=== PATIENT | female | born 1995 | race Caucasian/White ===

== ENCOUNTER 2020-02-28 09:34 | Emergency (ER) | payer SELFPAY ==
[2020-02-28 10:45] VITALS: BP 136/77; PULSE 80; RESP 18; TEMP 35.9; O2SAT 95; BMI 40.7
--- NOTE | 2020-02-28 10:45 | ED_ITS ---
HPI - URI/Sore Throat General Chief Complaint: Upper Respiratory Symptoms Stated Complaint: cough nausea Time Seen by Provider: 02/28/20 10:45 Source: patient Mode of arrival: ambulatory Limitations: no limitations History of Present Illness HPI Narrative: HAS HAD 3 NEGATIVE COVID TESTS, C/O RUNNY NOSE BUT NO FEVERS - NEEDS CLEARANCE TO RETURN MD elicited complaint: nasal congestion Onset (ago): week(s) (3) Consistency: intermittent Severity: mild Able to tolerate fluids by mouth: Yes Exacerbating factors: supine positioning Relieving factors: nothing Associated symptoms: denies other symptoms Treatments prior to arrival: none Related Data Previous Rx's Medication Instructions Recorded cetirizine 10 mg PO DAILY PRN #30 cap 02/28/20 Allergies Allergy/AdvReac Type Severity Reaction Status Date / Time No Known Allergies Allergy Verified 02/28/20 10:42 [No Known Allergies*] Review of Systems Review of Systems: Constitutional : No Weight loss, No Fever, No Chills, No Fatigue, No Malaise ENT/Mouth : No sore throat, pos Rhinorrhea Eyes: No Eye Pain, No Swelling, No Redness Cardiovascular : No Chest Pain, No SOB, No Dyspnea on Exertion, No Orthopnea, No Edema, No Palpitations Respiratory : pos for 3 weeks in AM Cough, No Sputum, No Wheezing Gastrointestinal : No Nausea, No Vomiting, No Diarrhea, No Constipation, No abdominal Pain, No Hematochezia, No Melena All other systems reviewed and are negative [facility] Past Medical History Attestation statement: The following information was validated with the patient. Medical History No known health problems Social History Social History Alcohol intake: current Smoking Status: Current every day smoker Use of substances other than those prescribed or required for medical reasons: No Advance Directives: No Advance Directives Information Provided: Yes Physical Exam Vital Signs: Vital Signs: Last Vital Signs Temp 96.6 F L 02/28/20 10:45 Pulse 80 02/28/20 10:45 Resp 18 02/28/20 10:45 BP 136/77 02/28/20 10:45 Pulse Ox 95 02/28/20 10:45 Body Mass Index 40.7 Appearance: Alert. Oriented X3. No acute distress. Eyes: Pupils equal, round and reactive to light. ENT: Pharynx normal. Neck: Normal inspection. Neck supple. CVS: Normal heart rate and rhythm. Pulses normal. Respiratory: No respiratory distress. Breath sounds normal. Abdomen: Soft and nontender. Skin: Skin warm and dry. Normal skin color. Normal skin turgor. Extremities: No lower extremity edema. No calf ttp Neuro: Oriented X 3. No motor deficit. No sensory deficit. MDM - URI/Sore Throat MDM Narrative Medical decision making narrative: 24 yo female with c/o post nasal drip here with cough and runny nose x 3 weeks has had 3 negative COVID tests in that time, here for work note, likely allergies will start on zyrtect Discharge Plan Discharge Clinical Impression: Allergic rhinitis Qualifiers: Allergic rhinitis trigger: unspecified Allergic rhinitis seasonality: unspecified Qualified Code(s): J30.9 - Allergic rhinitis, unspecified Patient Disposition: Home, Self-Care Instructions: Allergies (ED) Additional Instructions: return to ED for any worsening symptoms or concerns YOU HAVE HAD NEGATIVE COVID TESTS X 3, YOU HAVE POST NASAL DRIP, YOU ARE CLEARED TO RETURN TO WORK AT THIS TIME Prescriptions: New cetirizine 10 mg capsule 10 mg PO DAILY PRN (Reason: allergy symptoms) Qty: 30 RF: 1 Referrals: Physician,Unknown [Primary Care Provider] - 2 days ( NEEDED)
== END 2020-02-28 11:28 | disposition home or self-care (01) ==
PROVIDERS: Emergency Provider Emergency Medicine
DX: J30.9 Allergic rhinitis, unspecified (principal); R05 Cough; F17.200 Nicotine dependence, unspecified, uncomplicated; Z71.6 Tobacco abuse counseling; Z79.899 Other long term (current) drug therapy
CPT/HCPCS: 99283; 99284

== ENCOUNTER 2020-04-17 08:32 | Emergency (ER) | payer SELFPAY ==
--- NOTE | 2020-04-17 08:43 | ED_ITS ---
HPI - Female Genitourinary General Chief complaint: Urogenital-Female Stated complaint: pelvic pain Time Seen by Provider: 04/17/20 08:43 Source: patient Mode of arrival: ambulatory Limitations: no limitations History of Present Illness MD elicited complaint: vaginal discharge, pelvic pain and other (urinary frequency, tender breasts) Pertinent past history: IUD Onset (ago): day(s) (few) Location of symptoms: suprapubic Severity: similar to previous episodes (this happened with her last ) Female Urogenital Radiation: Non-Radiating Quality of pain: cramping and dull Consistency: intermittent Vaginal discharge: white Vaginal bleeding: none Urinary symptoms: Frequency Exacerbating factors: none Relieving factors: none Associated symptoms: other (TOOK A TEST AT HOME AND THERE WAS A FAINT LINE) Treatment prior to arrival: none Sexual activity: Yes Possible : at home test positive Related Data Previous Rx's Medication Instructions Recorded cetirizine 10 mg PO DAILY PRN #30 cap 02/28/20 cefuroxime axetil 500 mg PO BID 7 Days #28 tab 04/17/20 phenazopyridine [Pyridium] 100 mg PO TID PRN #6 tab 04/17/20 Allergies Allergy/AdvReac Type Severity Reaction Status Date / Time No Known Allergies Allergy Verified 02/28/20 10:42 [No Known Allergies*] Review of Systems Review of Systems: Constitutional : No Weight loss, No Fever, No Chills ENT/Mouth : No sore throat, No Rhinorrhea Eyes: No Swelling, No Redness Cardiovascular : No Chest Pain, No SOB, NoEdema Respiratory : No Cough, No Sputum, No Wheezing Gastrointestinal : no Nausea, no Vomiting, no Diarrhea, no abdominal Pain, No Hematochezia, No Melena Genitourinary : No Dysuria, posUrinary Frequency, No Hematuria, No Urgency , pos vaginal discharge, pos pelvic pain Musculoskeletal : No joint pain, No Myalgias, No Joint Swelling Skin : No Skin Lesions, No rash Neuro : No Weakness, No Numbness, No Dizziness, No Headache Psych : No Anxiety/Panic, No Depression Heme/Lymph: No Bruising, No Lymphadenopathy Endocrine : No Polyuria, No Polydipsia All other systems reviewed and are negative. [facility] Past Medical History Attestation statement: The following information was validated with the patient. Medical History No known health problems Social History Social History Alcohol intake: current Alcohol intake frequency: a few times a week Smoking Status: Current every day smoker Smoked in Last 30 Days: Yes Use of substances other than those prescribed or required for medical reasons: Yes Substance Use Type: IV Drugs Substance Use Frequency: Weekly Advance Directives: No Advance Directives Information Provided: No Physical Exam Vital Signs: Vital Signs: Last Vital Signs Temp 98.5 F 04/17/20 08:52 Pulse 99 04/17/20 08:52 Resp 16 04/17/20 08:52 BP 131/94 H 04/17/20 08:52 Pulse Ox 97 04/17/20 08:52 Body Mass Index 38.9 Appearance: Alert. Oriented X3. No acute distress. Eyes: Pupils equal, round and reactive to light. ENT: Pharynx normal. Neck: Normal inspection. Neck supple. CVS: Normal heart rate and rhythm. Pulses normal. Respiratory: No respiratory distress. Breath sounds normal. Abdomen: Soft and mild suprapubic ttp : thick white discharge noted, no CM ttp, no lesions, strings of IUD noted Skin: Skin warm and dry. Normal skin color. Normal skin turgor. Extremities: No lower extremity edema. No calf ttp Neuro: Oriented X 3. No motor deficit. No sensory deficit. Course Course Course Narrative: will start on abx for UTI, given exam dose of diflucan, wants to follow up with OB for IUD removal, discussed safe sex practices MDM - Female Genitourinary MDM Narrative Medical decision making narrative: 24 yo female with IUD, vaginal discharge, urinary frequency, + preg test at home - at this time will need labs, quant, US to evaluate IUD as well as possible , will send off G+C/trichomonas dispo per results and findings. Lab Data Result diagrams: 04/17/20 09:57 04/17/20 09:57 Labs: Lab Results 04/17/20 04/17/20 04/17/20 Range/Units 09:52 09:57 09:57 WBC 15.1 H (4.8-10.8) X10*3/uL RBC 4.91 (4.20-5.50) X10*6/uL Hgb 14.9 (12.0-16.0) g/dl Hct 44.3 (37-47) % MCV 90.2 (80-98) fL MCH 30.3 (27.0-33.0) pg MCHC 33.6 (31.0-35.0) g/dl RDW 13.4 (11.0-16.0) % Plt Count 320 (160-400) X10*3/uL MPV 10.4 (9.4-12.3) fL Immature Gran % (Auto) 0.3 (0.0-0.4) % Neut % (Auto) 74.0 H (45-73) % Lymph % (Auto) 15.1 L (20-40) % Kaufman % (Auto) 9.8 (2-11) % Eos % (Auto) 0.5 (0-4) % Baso % (Auto) 0.3 (0-2) % Lymph # (Auto) 2.3 (1.2-4.9) X10*3/uL Kaufman # (Auto) 1.5 H (0.1-1.2) X10*3/uL Eos # (Auto) 0.1 (0.0-0.4) X10*3/uL Baso # (Auto) 0.0 (0.0-0.2) X10*3/uL Abs Immat Gran (auto) 0.04 H (0.00-0.03) X10*3/uL Absolute Neuts (auto) 11.2 H (2.0-8.3) X10*3/uL Absolute Nucleated RBC 0.000 (0.0-0.012) X10*3/uL Nucleated RBC % (auto) 0.0 (0.0-0.2) /100WBC Sodium 140 (135-145) mmol/L Potassium 3.6 (3.3-5.1) mmol/l Chloride 102 (96-108) mmol/L Carbon Dioxide 24 (22-29) mmol/L Anion Gap 18 (12-20) BUN 13 (9-16) mg/dL Creatinine 0.84 (0.5-1.4) mg/dL Estim Creat Clear Calc 115.3 Estimated GFR > 60 Random Glucose 91 (60-115) mg/dL Calcium 9.8 (8.4-10.2) mg/dL Beta HCG, Quant < 2 mIU/mL Urine Color YELLOW Urine Appearance TURBID Urine pH 6.0 (5.0-8.0) Ur Specific [place] >= 1.030 H (1.005-1.025) Urine Protein TRACE (NEG-TRACE) MG/DL Urine Glucose (UA) NEG (NEG) MG/DL Urine Ketones NEG (NEG) MG/DL Urine Blood TRACE (NEG) Urine Nitrite POS H (NEG) Ur Leukocyte Esterase TRACE H (NEG) Urine RBC 0-2 (0) /HPF Urine WBC 0-2 (0-4) /HPF Ur Squamous Epith Cells 2+ /LPF Amorphous Sediment 4+ /LPF Urine Bacteria NONE /LPF Discharge Plan Discharge Clinical Impression: Urinary tract infection Qualifiers: Urinary tract infection type: acute cystitis Hematuria presence: without hematuria Qualified Code(s): N30.00 - Acute cystitis without hematuria Ovarian cyst Qualifiers: Laterality: left Qualified Code(s): N83.202 - Unspecified ovarian cyst, left side IUD migration Qualifiers: Encounter type: initial encounter Qualified Code(s): T83.32XA - Displacement of intrauterine contraceptive device, initial encounter Patient Disposition: Home, Self-Care Instructions: Urinary Tract Infection in Women (ED) Additional Instructions: return to ED for any worsening symptoms or concerns YOU WERE GIVEN A DOSE OF ANTIBIOTICS AND MEDICATION FOR YEAST WHILE IN ED IF ANYTHING COMES BACK POSITIVE ON STI PANEL WE WILL CALL YOU IN 3 DAYS, PLEASE FOLLOW UP WITH YOUR OB, YOUR IUD IS NOT IN THE RIGHT PLACE IF YOU HAVE SEX USE A CONDOM Prescriptions: New cefuroxime axetil 250 mg tablet 500 mg PO BID 7 Days Qty: 28 RF: 0 phenazopyridine [Pyridium] 100 mg tablet 100 mg PO TID PRN (Reason: pain) Qty: 6 RF: 0 No Action cetirizine 10 mg capsule 10 mg PO DAILY PRN (Reason: allergy symptoms) Qty: 30 RF: 1 Stand Alone Forms: Work/School Release
--- NOTE | 2020-04-17 08:49 | US_ITS ---
EXAMINATION: PELVIC ULTRASOUND CLINICAL INFORMATION: Lower abdominal pain COMPARISON: None TECHNIQUE: Transabdominal and transvaginal pelvic ultrasound was performed. Transvaginal exam was performed for better visualization of the uterus and ovaries. FINDINGS: The uterus is anteverted and measures 8 x 3.7 x 5.7 cm in dimension. There is an IUD in the uterus. This is in a low position in the lower uterine segment and cervix. Endometrial thickness measures 1.1 cm. No focal uterine lesion is seen. The right ovary is normal-appearing and measures 2.6 x 2.1 x 2.2 cm. The left ovary is slightly enlarged measuring 3.7 x 2.9 x 2.6 cm, volume 15 mL. There is a 2 x 1.8 x 1.8 cm complex left ovarian cyst with thickened wall and some internal echoes and possible internal septations. There is no fluid in the pelvis. US/US transvaginal IMPRESSION: Low position of IUD in the lower uterine segment and cervix. Slightly enlarged left ovary and 2 x 1.8 x 1.8 cm complex left ovarian cyst.
--- NOTE | 2020-04-17 08:49 | US_ITS ---
EXAMINATION: PELVIC ULTRASOUND CLINICAL INFORMATION: Lower abdominal pain COMPARISON: None TECHNIQUE: Transabdominal and transvaginal pelvic ultrasound was performed. Transvaginal exam was performed for better visualization of the uterus and ovaries. FINDINGS: The uterus is anteverted and measures 8 x 3.7 x 5.7 cm in dimension. There is an IUD in the uterus. This is in a low position in the lower uterine segment and cervix. Endometrial thickness measures 1.1 cm. No focal uterine lesion is seen. The right ovary is normal-appearing and measures 2.6 x 2.1 x 2.2 cm. The left ovary is slightly enlarged measuring 3.7 x 2.9 x 2.6 cm, volume 15 mL. There is a 2 x 1.8 x 1.8 cm complex left ovarian cyst with thickened wall and some internal echoes and possible internal septations. There is no fluid in the pelvis. US/US pelvic complete IMPRESSION: Low position of IUD in the lower uterine segment and cervix. Slightly enlarged left ovary and 2 x 1.8 x 1.8 cm complex left ovarian cyst.
[2020-04-17 08:52] VITALS: BP 131/94; PULSE 99; RESP 16; TEMP 36.9; O2SAT 97; BMI 38.9
--- NOTE | 2020-04-17 09:12 | PC.NURSE ---
Pt transported to ultrasound.
[2020-04-17 10:05] LABS: Basophils Percent Auto 0.3 % (0-2); Eosinophils Absolute Auto 0.1 X10*3/uL (0.0-0.4); Eosinophils Percent Auto 0.5 % (0-4); Hematocrit 44.3 % (37-47); Hemoglobin 14.9 g/dl (12.0-16.0); Imm Gran Abs Auto 0.04 X10*3/uL (0.00-0.03); Imm Gran Pct Auto 0.3 % (0.0-0.4); Lymphocytes Absolute Auto 2.3 X10*3/uL (1.2-4.9); Lymphocytes Percent Auto 15.1 % (20-40); MANUAL DIFF FLAG NO; Mean Corpuscular HGB Conc 33.6 g/dl (31.0-35.0); Mean Corpuscular Hemoglobin 30.3 pg (27.0-33.0); Mean Corpuscular Volume 90.2 fL (80-98); Mean Platelet Volume 10.4 fL (9.4-12.3); Monocytes Absolute Auto 1.5 X10*3/uL (0.1-1.2); Monocytes Percent Auto 9.8 % (2-11); Neutrophils Absolute Auto 11.2 X10*3/uL (2.0-8.3); Platelet Count 320 X10*3/uL (160-400); Red Blood Count 4.91 X10*6/uL (4.20-5.50); Red Cell Distribution Width 13.4 % (11.0-16.0); White Blood Count 15.1 X10*3/uL (4.8-10.8)
[2020-04-17 10:07] LABS: Glucose Urine UA NEG (NEG); Leukocyte Esterase Urine TRACE (NEG); Nitrite Urine POS (NEG); Specific Gravity - Urine >= 1.030 (1.005-1.025); Urine Blood TRACE (NEG); Urine Ketones NEG (NEG); Urine Protein TRACE MG/DL (NEG-TRACE)
[2020-04-17 10:09] LABS: Appearance Urine TURBID; Color Urine YELLOW
[2020-04-17 10:18] LABS: RBC Urine 0-2 /HPF (0); Squamous Epithelial Cell Urine 2+ /LPF; WBC Urine 0-2 /HPF (0-4)
[2020-04-17 10:19] LABS: Amorphous Sediment Urine 4+ /LPF
[2020-04-17 10:33] LABS: Anion Gap 18 (12-20); Blood Urea Nitrogen 13 mg/dL (9-16); Calcium 9.8 mg/dL (8.4-10.2); Carbon Dioxide 24 mmol/L (22-29); Chloride 102 mmol/L (96-108); Creatinine Clr Calc Pharmacy 115.3; Estimated Glomerular Filt Rate > 60; Glucose Random 91 mg/dL (60-115); Potassium 3.6 mmol/l (3.3-5.1); Sodium 140 mmol/L (135-145)
[2020-04-17 10:43] LABS: HCG Quantitative < 2 mIU/mL
[2020-04-17] MEDS: Fluconazole 150 MG TABLET PO (11:12)
[2020-04-21 10:46] LABS: CT PCR NOT DETECTED (Not Detect.); NG PCR NOT DETECTED (Not Detect.)
== END 2020-04-17 11:28 | disposition home or self-care (01) ==
PROVIDERS: Emergency Provider Emergency Medicine
DX: N30.00 Acute cystitis without hematuria (principal); N83.202 Unspecified ovarian cyst, left side; R10.2 Pelvic and perineal pain; F17.200 Nicotine dependence, unspecified, uncomplicated; T83.32XA Displacement of intrauterine contraceptive device, initial encounter; X58.XXXA Exposure to other specified factors, initial encounter; Z71.6 Tobacco abuse counseling; Z79.899 Other long term (current) drug therapy
CPT/HCPCS: 36415; 76830; 76856; 80048; 81001; 81003; 84702; 85025; 87086; 87147; 87491; 87591; 99284

== ENCOUNTER 2020-08-05 15:25 | Outpatient (REF) | payer OTHER, SELFPAY | END 2020-08-05 15:26 | disposition home or self-care (01) | LOC: HO.LAB 15:25 | PROVIDERS: Visit Provider Internal Medicine | DX: Z20.822 Contact with and (suspected) exposure to COVID-19 (principal) | CPT/HCPCS: C9803; U0003; U0005 ==

== ENCOUNTER 2020-11-22 15:13 | Outpatient (REF) | payer OTHER, SELFPAY | END 2020-11-22 15:14 | disposition home or self-care (01) | LOC: HO.LAB 15:13 | PROVIDERS: Visit Provider Internal Medicine | DX: Z12.31 Encounter for screening mammogram for malignant neoplasm of breast (principal) | CPT/HCPCS: C9803; U0003; U0005 ==